=== PATIENT | female | born 1935 | race Caucasian/White ===

== ENCOUNTER 2023-08-28 01:19 | Emergency (ER) | payer MEDICARE ==
[2023-08-28] MEDS ORDERED: Lidocaine 1% with EPINEPHrine 1:100,000 50 ML MDV INFILT ONE (02:23)
[2023-08-28] MEDS ORDERED: Lidocaine 1% with EPINEPHrine 1:100,000 20 ML MDV INJECT ONE (02:25)
[2023-08-28] MEDS ORDERED: Bacitracin Oint 1 GM U/D Packet TOP ONE (03:13)
== END 2023-08-28 03:20 | disposition home or self-care (01) ==
LOC: LB.ED 01:19
DX: S81.811A Laceration without foreign body, right lower leg, initial encounter (principal); I10 Essential (primary) hypertension; E03.9 Hypothyroidism, unspecified; Z87.891 Personal history of nicotine dependence; W22.8XXA Striking against or struck by other objects, initial encounter; Z88.8 Allergy status to other drugs, medicaments and biological substances
CPT/HCPCS: 12005; 99282; 99283